=== PATIENT | male | born 1950 | race Caucasian/White ===

== ENCOUNTER → 2020-07-13 11:23 | Outpatient (BNVA) | payer MEDICARE, OTHER, SELFPAY | PROVIDERS: PCP Internal Medicine; Visit Provider Urology | DX: Z76.89 Persons encountering health services in other specified circumstances (principal) | CPT/HCPCS: 99212 ==

== ENCOUNTER → 2022-04-26 13:10 | Outpatient (BNVA) | payer MEDICARE, OTHER, SELFPAY | PROVIDERS: PCP Internal Medicine; Visit Provider Urology | DX: N40.1 Benign prostatic hyperplasia with lower urinary tract symptoms (principal); N13.8 Other obstructive and reflux uropathy; R35.1 Nocturia; N52.9 Male erectile dysfunction, unspecified | CPT/HCPCS: 51798; 99212 ==

== ENCOUNTER 2023-10-12 11:32 | Outpatient (AMB) | payer MEDICARE, OTHER, SELFPAY ==
--- NOTE | 2023-10-12 11:56 | A.OFFVIS_ITS ---
Intake Intake Visit Reasons: 1Y PVR Intake Note: Patient is Present for Follow Up Urology Medication: sildenafil, Terazosin Antibiotic Allergies: None Blood Thinners: None PVR: 0 Allergies furosemide [Lasix] Allergy (Unknown, Verified 10/12/23 11:57) Unknown hydroxychloroquine [Plaquenil] Allergy (Unknown, Verified 10/12/23 11:57) Unknown tramadol [Ultram] Allergy (Unknown, Verified 10/12/23 11:57) Unknown Medication List - Last Reconciled 10/12/23 by Kyaw Sotelo MD atorvastatin 20 mg PO DAILY chlorthalidone 25 mg PO DAILY flu 2019 [id number](PF) 60 mcg (15 mcg x 4)/0.5 mL mL IM metoprolol succinate ER 200 mg PO DAILY sildenafil 100 mg PO ONCE PRN 30 days terazosin 10 mg PO BEDTIME 90 days HPI HPI Comments History of Present Illness Details ?Mr Mckoy is a very pleasant male. They are a patient of Dr Fields. They are seen in the office today for the following urologic cond itions. - lower urinary tract symptoms - erectile dysfunction PVR 0 Stable response to terazosin 10 mg Good response to generic Viagra Continue to follow with intermittent PSA Lower Urinary Tract Symptoms:? Current visit is for?further evaluation of, lower urinary tract symptoms, predominate obstructive symptoms ?- symptoms stable with nocturia x2 ?- good effect with terazosin.? Current treatment includes?medication, alpha vito, terazosin 5mg.? Prostate Symptom Score?Mild (0-8), Bother 3 ?11/05 , Mild (0-8), Bother 2.? Symptoms include?07/03 weak stream, nocturia (>2), and are stable ?11/05 , weak stream, and are stable.? Prior Prostate Score?mild.? PSA?Apr 2015 0.9, 07/06 0.4 ? Prostate volume?< 30 gm.? Testing at next visit will include?uroflow.? Treatment plan?continue with current medications.? Erectile dysfunction:? He presents today for?for continued evaluation and management of erectile dysfunction.? Current treament includes?generic sildenafil 20mg good effect.? Treatment side effects include?none.? Prior therapies include?oral medications.? At this time he experiences erections?are partial and adequate for vaginal penetration.? Nocturnal erections?do not occur.? Currently they are?in a stable relationship.? Associated problems? hypertension ?Yes ? diabetes ?No ? dyslipidemia ?Yes ? Overall he is ?satisfied with the current management.? Therapeutic plan includes?maintaining current therapy.? Review of Systems Const Denies chills and Denies fever(s) Card Reports no additional complaints and Denies syncope Resp Denies cough GI Denies abdominal pain and Denies heartburn Reports as per HPI and Denies change in libido Neuro Denies syncope Psych Denies change in libido Endo Denies change in libido Physical Exam Const General: cooperative, healthy appearing, comfortable and no acute distress Orientation/consciousness: patient oriented x3 HEENT Face and sinus: Yes normal facial exam Mouth: moist mucous membranes Neck Neck: Yes normal visual inspection, Yes full ROM and Yes trachea midline Chest Chest palpation & inspection: normal inspection of the chest Resp Effort & Inspection: normal respiratory effort, able to speak in complete sentences and no respiratory distress GI Inspection: Yes normal to inspection Back/Spine/Pelvis Cervical Spine: normal cervical lordosis Thoracic/Lumbar Spine: thoracic and lumbar spine normal to inspection Skin General skin exam: no rashes or lesions noted Neuro General: patient oriented x3, gait normal, tone normal and moves all extremities Extrem General: Yes normal to inspection and Yes capillary refill normal Office Procedures Post Void Residual Post Residual Void Post Void Residual (PVR): 0 [id number] Void Residual by ultrasound Assessment & Plan Assessment & Plan (1) Erectile dysfunction: Code(s): N52.9 - Male erectile dysfunction, unspecified (2) BPH loc w urin obs/LUTS: Code(s): N40.1 - Benign prostatic hyperplasia with lower urinary tract symptoms Plan Medication refill Month follow-up PSA Orders: Orders Prostate Specific Antigen 364 Days N40.1 - Benign prostatic hyperplasia with lower urinary tract symptoms AMB Post Void Residual by ultrasound 10/12/23 N40.1 - Benign prostatic hyperplasia with lower urinary tract symptoms Patient Instructions: Imaging studies, laboratory and physical exam results were discussed and reviewed in detail. No major barriers to patient understanding were identified. An opportunity to ask questions regarding the treatment plan was provided. All questions were answered. The patient expressed understanding and agreement with the above treatment plan. The patient is aware they should contact our office by phone for worsening of their current condition or the appearance of new urologic symptoms. Compliance is encouraged with any medications and followup testing that is ordered. It is a privilege to participate in the urologic care of your patient. If you have any questions or concerns regarding treatment for the above conditions, or other urologic issues, please do not hesitate to contact me. The office telephone contact is [phone]. This note is constructed using voice recognition software. While every effort has been made to ensure accuracy director advanced errors may have been included. Yours sincerely, Dr Kyaw Sotelo MD, [facility] [place] - Urology Providers of Expert, Compassionate Care for the Genitourinary System Coding Level of Care Code Est Pt Level 4 (85509) Diagnoses Erectile dysfunction N52.9 BPH loc w urin obs/LUTS N40.1 CPT Codes Post Residual Void - PVR CPT Code: 80734-Ynqx Void Residual by ultrasound ([id number])
== END 2023-10-12 12:27 | disposition home or self-care (01) ==
PROVIDERS: Visit Provider Urology
DX: N52.9 Male erectile dysfunction, unspecified (principal); N40.1 Benign prostatic hyperplasia with lower urinary tract symptoms
CPT/HCPCS: 99213

== ENCOUNTER → 2023-10-12 11:32 | Outpatient (BNVA) | payer MEDICARE, OTHER, SELFPAY | PROVIDERS: Visit Provider Urology | DX: N40.1 Benign prostatic hyperplasia with lower urinary tract symptoms (principal); N13.8 Other obstructive and reflux uropathy; N52.9 Male erectile dysfunction, unspecified | CPT/HCPCS: 51798; 99212 ==

== ENCOUNTER → 2024-10-10 11:11 | Outpatient (BNVA) | payer OTHER, SELFPAY | PROVIDERS: PCP Internal Medicine; Visit Provider Urology | DX: N40.1 Benign prostatic hyperplasia with lower urinary tract symptoms (principal); N13.8 Other obstructive and reflux uropathy; N52.9 Male erectile dysfunction, unspecified | CPT/HCPCS: 51798; 81003 ==

== ENCOUNTER 2025-04-11 16:06 | Emergency (ER) | payer MEDICARE, OTHER, SELFPAY ==
--- NOTE | ~2025-04-11 | XR_ITS ---
CLINICAL HISTORY: weakness 1 view chest x-ray Comparison: None provided Findings: Median sternotomy. The lungs are clear. Normal size heart. No acute fracture. IMPRESSION: 1. No acute findings. This document has been electronically signed by: Cassie Lord MD on 04/11/2025 18:00:17
--- NOTE | ~2025-04-11 | CT_ITS ---
CLINICAL HISTORY: diarrhea, diffuse ABD pain, LLQ TTP CT abdomen and pelvis with contrast Comparison: CT - CT ABDOMEN PELVIS W IV CON - 04/11/25 18:59 EDT Findings: The lung bases are clear. Unremarkable gallbladder and solid organs. No urolithiasis. No bowel obstruction, pneumoperitoneum, or pneumatosis. Pelvic contents unremarkable. Appendix is not seen. The bones are intact. Right hip arthroplasty. Grade 1 anterolisthesis of L5 on S1. Bilateral L5-S1 pars interarticularis defects. Multilevel disc space narrowing and endplate osteophyte formation, as well as facet hypertrophy. IMPRESSION: No acute findings. This document has been electronically signed by: Cassie Lord MD on 04/11/2025 20:18:22
--- NOTE | ~2025-04-11 | CT_ITS ---
CLINICAL HISTORY: weakness, unsteady gait CT head without contrast Comparison: None provided Findings: No intra-axial mass, midline shift, hydrocephalus, or acute hemorrhage. Age appropriate cerebral volume loss. Patchy low-density within the periventricular and subcortical white matter. The visualized paranasal sinuses and mastoid air cells are normal. The orbits are unremarkable. There is no acute fracture. IMPRESSION: 1. No acute intracranial findings. This document has been electronically signed by: Cassie Lord MD on 04/11/2025 20:19:19
[2025-04-11 16:16] VITALS: BP 112/68; BP 98/54; PULSE 79; RESP 20; TEMP 36.6; O2SAT 95; O2SAT 97; BMI 30.8
--- NOTE | 2025-04-11 16:38 | ECG_ITS ---
Test Reason : WEAKNESS Blood Pressure : */* mmHG Vent. Rate : 71 BPM Atrial Rate : 71 BPM P-R Int : 192 ms QRS Dur : 94 ms QT Int : 422 ms P-R-T Axes : 36 -7 27 degrees QTcB Int : 458 ms Normal sinus rhythm Normal ECG No previous ECGs available Referred By: María Garg Electronically Signed By: Milton Mosley
--- NOTE | 2025-04-11 16:57 | PC.NURSE ---
Pt BIBA. Reports increased weakness for a couple of months now that has been worsening. Also mentions intermittent abdominal pain but not currently having any, and has had multiple episodes of diarrhea today. No nausea or vomiting. Hes alert and oriented. Skin is pale. Hes breathing normally, unlabored and denies shortness of breath. +CSM. Placed on tele. Plan of care on going.
--- NOTE | 2025-04-11 17:15 | ED_ITS ---
HPI - Weakness General Chief complaint: Weakness Stated complaint: general weakness Time Seen by Provider: 04/11/25 16:20 Source: patient and EMS Mode of arrival: EMS Limitations: no limitations History of Present Illness ED Provider: calin baird np HPI Narrative: Patient is a 74-year-old male with past medical history of atherosclerosis, atrial fibrillation history of ablation, hypertension, hyperlipidemia, sick sinus syndrome with no reported pacemaker, history of aortic valve replacement,, BPH, untreated ROYCE, history of PMR in [id number] which he states he was on varying levels of prednisone throughout those years, associated joint pain, no recent issues who presents emergency department for evaluation. He states that since early February he had abrupt onset 1 day of severe fatigue. Typically he leaves the house daily, has been to have energy can carry groceries up to the 2nd floor without difficulty. One day he suddenly felt as though he had no energy to leave the house and was just feeling generally weak. He saw his primary care provider early on had blood work done including thyroid function and testosterone levels which he states was normal. Soon thereafter he began developing generalized abdominal pain without associated nausea vomiting fevers chills constipation diarrhea or genitourinary symptoms. Had an abdominal ultrasound which was unremarkable. He states that he presented to [facility] 03/12/2025 and was admitted for 2 days success on 04/2025. States he was given no answer in regards to his fatigue but felt that his abdominal pain may have been due to an ulcer and he was started on pantoprazole, had no endoscopy performed, has continued to have abdominal pain but has been taking pantoprazole. Outpatient GI he is typically eating perhaps 1 meal a day, minimal oral intake, but taking ensure protein drinks. The fatigue/weakness has only med progressively worsening. Today he had a few episodes of diarrhea described as loose stools that are only progressively worsening. Additionally he states he has having intermittent mottling of the bilateral lower extremities without associated pain, coolness to touch, or swelling. He was discharged from [facility] with VNA/PT services which he is receiving once weekly through [employer]. Discharge instructions [facility] include pantoprazole for the presumed ulcer, no scheduled follow-up for Gastroenterology, advised outpatient follow-up with PCP and instructed to have rheumatology follow-up for treatment of PMR to improve energy/fatigue Related Data Home Medications ?Medication ?Instructions ?Recorded ?Confirmed atorvastatin 20 mg tablet 20 mg PO DAILY 07/13/2003/18 chlorthalidone 25 mg tablet 25 mg PO DAILY 07/13/20 metoprolol succinate 200 mg 200 mg PO DAILY 07/13/20 0 04/12/25 tablet,extended release 24 hr bisacodyl 10 mg rectal suppository 10 mg SC DAILY PRN constipation 04/12/25 04/12/25 cetirizine 10 mg tablet 10 mg PO DAILY 04/12/2503/18 docusate sodium 100 mg capsule 100 mg PO BID PRN const ipation 04/12/25 04/12/25 melatonin 3 mg tablet 3 mg PO BEDTIME PRN Sleep 04/12/25 pantoprazole 40 mg tablet,delayed 40 mg PO BID 5 04/12/25 release polyethylene glycol 3350 17 17 g PO DAILY PRN constipa tion 04/12/25 04/12/25 gram/dose oral powder (ClearLax) prednisone 5 mg tablet 10 mg PO DAILY 04/12/2503/18 Previous Rx's ?Medication ?Instructions ?Recorded terazosin 10 mg capsule 10 mg PO BEDTIME #90 caps oxycodone 5 mg tablet 5 mg PO Q8H PRN severe pain (scale 04/14/25 score 7-10) #10 tabs Allergies Allergy/AdvReac Type Severity Reaction Status Date / Time furosemide (Lasix) Allergy Unknown Unknown Verified 10/10/24 11:15 hydroxychloroquine Allergy Unknown Unknown Verified 10/10/24 11:15 (Plaquenil) tramadol (Ultram) Allergy Unknown Unknown Verified 10/10/24 11:15 acetaminophen (From Vicodin) Allergy Unknown Verified 04/11/25 16:22 amoxicillin Allergy Unknown Verified 04/11/25 16:22 bisacodyl (From Dulcolax Allergy Unknown Verified 04/11/25 16:22 (bisacodyl)) celecoxib (From Celebrex) Allergy Unknown Verified 04/11/25 16:22 hydrocodone (From Vicodin) Allergy Unknown Verified 04/11/25 16:22 valdecoxib (From Bextra) Allergy Unknown Verified 04/11/25 16:22 [facility] Social History Social History Alcohol intake: former Smoked in Last 30 Days: No Use of substances other than those prescribed or required for medical reasons: No Advance Directives: No Advance Directives Information Provided: No Physical Exam 2 Exam: Exam: Appearance: Alert.?Oriented to person, place and time. No acute distress.?Normal affect. Eyes: Pupils equal, round and reactive to light.? ENT: Pharynx normal.?? Neck: Normal inspection.? Neck supple.?? CVS: Heart sounds normal. Normal heart rate and rhythm.? Pulses normal.?? Respiratory: No respiratory distress.? Lung sounds clear to auscultation bilaterally?? Abdomen: Soft with diffuse abdominal tenderness, worse in the left lower quadrant. No CVA tenderness. Normoactive bowel sounds. No pulsatile mass.?? Skin: Skin warm and dry.? Normal skin color.? Extremities: No lower extremity edema.? No calf ttp. 2+ DP/PT pulse bilaterally? Neuro: Moves all extremities spontaneously. Sensation intact bilaterally. CN II- XII intact. No focal neuro deficits. Ambulates with slow unsteady gait. Vital Signs: Vital Signs: Last Vital Signs Temp 98.2 F 04/14/25 12:17 Pulse 94 04/14/25 12:17 Resp 18 04/14/25 12:17 BP 104/68 04/14/25 12:17 Pulse Ox 97 04/14/25 12:17 O2 Del Method Room Air 04/14/25 12:17 BMI result Body Mass Index 30.8 Course Reevaluation(s) Reevaluation #1: CBC reveals leukocytosis of 16,700 with left shift, mild thrombocytosis with platelet count of 411,000, normocytic anemia not meeting transfusion criteria. Mild hyponatremia is 134, no KAYLYN. Mild elevation of LFTs, normal lipase. High sensitive troponin within normal range. Notably elevated inflammatory markers with CRP 26.3 and ESR 97, as per narrative, may be secondary to PMR. Leukocytosis may be inflammatory in nature, however given associated diarrhea and abdominal pain, concern for potential infection at this time. He is afebrile and no tachycardia. Will provide empiric coverage with ceftriaxone, sent lactic acid and blood cultures, pending CT imaging at this time. Time: 18:34 Reevaluation #2: Patient signed out to Arelis MARSH pending CT of the abdomen and pelvis in addition to urinalysis, re-evaluation/disposition Time: 19:13 Reevaluation #3: 7:23 PM 04/11/2025 (Arelis MARSH): Patient is signed out to this provider at shift change, in summary the patient is a 74-year-old male presenting to the ED for complaints of ongoing weakness/fatigue for the past 2 months which has been previously evaluated at [facility] and thought to be possibly secondary to history of PMR, patient was referred to Rheumatology but has not yet followed up. The patient reports however today he began experiencing generalized abdominal pain localizing to the left lower quadrant with associated diarrhea. Exam revealed abdominal tenderness and laboratory workup showed elevated CRP, ESR, and leukocytosis of 16,000. Patient is signed out to this provider pending CT abdomen and UA. Of note this provider just received a phone call from the lab indicating patient has not elevated lactic acid of 2.1. Given the patient's lactic acidosis, leukocytosis, low blood pressure on presentation and elevated respiratory rate on most recent vital signs, we will add additional IV fluid to complete full 30 cc/kg bolus. Blood cultures were already obtained and patient has been treated with Rocephin, we will add on IV Flagyl and await CT results. 10:31 PM 04/11/2025 (Arelis MARSH): Patient's CT results are negative for acute pathology, patient's urinalysis is still pending. We will follow up UA for infectious process. 12:21 AM 04/12/2025 (Arelis MARSH): The patient's urinalysis also shows no evidence of infection. The patient's lactic acid is clear to 2.1, patient remains afebrile. The source of the patient's leukocytosis, elevated lactic acid and inflammatory markers is not entirely clear. The patient's LFTs are mildly abnormal, we will add on hepatitis panel and reassess. 3:30 AM 04/12/2025 (Arelis MARSH): The patient's hepatitis panel will not return until Sunday, the patient remains afebrile, normotensive, with no obvious source of infection. The patient states he is too weak to return home safely. At this time, despite elevated inflammatory markers and WBCs, the patient has no identifiable source of infection and no admitting diagnosis and the patient will be admitted to case management observation status. Time: 09:36 Date: 04/12/25 Provider: Kaylynn Arriaza NP Patient in physician observation for case management needs. No acute events reported overnight.? No current issues or complaints. VS stable. Patient is pending PT/CM eval. Will continue to monitor. On review of the med rec the patient had been on 15 mg of prednisone daily until the week of February in which he was decreased to 10 mg daily. His symptoms on review of the chart and after discussion with his initial provider started the week of February. Wondering if he is having a PMR flare due to the decrease of daily prednisone. Therefore I will increase his dose to 15 mg Time: 14:02 Date: 04/14/25 Provider: SALMA Hooks Patient in physician observation for case management needs. No acute events reported overnight.? No current issues or complaints. VS stable. He remains afebrile and hemodynamically stable. His labs were reviewed. Given his significant leukocytosis, transaminitis will repeat labs as they were done 3 days ago. Patient is pending placement at facility/ following for placement to short term rehab. Will continue to monitor. Time: 15:39 Date: 04/14/25 Provider: SALMA Hooks Physician observation ended at 15:40. Patient has been cleared for discharge to short term rehab. labs overall improved, aside from some mild increase in transaminases. Bilirubin is now normal. CRP is now 15 and white count is down trending. Comfortable discharge to short-term rehab with ongoing treatment for PMR flare. Patient does not require inpatient medical admission at this time. Stable for discharge to [facility] Medications Administered Generic Name Dose Route Start Last Admin Trade Name Freq PRN Reason Stop Dose Admin Atorvastatin Calcium 20 mg 04/12/25 09:30 04/14/25 10:26 Atorvastatin Calcium 20 Mg Tablet PO 20 mg DAILY JOANIE Administration Docusate Sodium 100 mg 04/12/25 09:19 04/13/25 20:25 Docusate Sodium 100 Mg Capsule PO 100 mg BID PRN Administration Constipation Doxazosin Mesylate 8 mg 04/12/25 21:00 04/13/25 20:25 Doxazosin Mesylate 2 Mg Tablet PO 8 mg BEDTIME JOANIE Administration Hydrochlorothiazide 25 mg 04/12/25 09:45 04/14/25 10:26 Hydrochlorothiazide 25 Mg Tablet PO 25 mg DAILY JOANIE Administration Metoprolol Succinate 200 mg 04/12/25 09:30 04/14/25 10:25 Metoprolol Succinate Er 100 Mg Tab.Er.24h PO 200 mg DAILY JOANIE Administration Protocol Omeprazole 20 mg 04/12/25 09:45 04/14/25 05:37 Omeprazole 20 Mg Capsule.Dr PO 20 mg BID@0630,1630 JOANIE Administration Oxycodone HCl 5 mg 04/12/25 20:34 04/14/25 12:22 Oxycodone Hcl Immed Release 5 Mg Tablet PO 5 mg Q6H PRN Administration Pain, Moderate(Pain Scale 4-6) Prednisone 15 mg 04/12/25 09:45 04/14/25 12:05 Prednisone 5 Mg Tablet PO 15 mg DAILY JOANIE Administration Discontinued Medications Generic Name Dose Route Start Last Admin Trade Name Freq PRN Reason Stop Dose Admin Ceftriaxone Sodium 1 gm 04/11/25 18:33 04/11/25 18:56 Ceftriaxone Sodium 1 Gm Vial IVPUSH 04/11/25 18:34 1 gm ONCE ONE Administration Doxazosin Mesylate 8 mg 04/11/25 17:50 04/11/25 18:14 Doxazosin Mesylate 2 Mg Tablet PO 04/11/25 17:51 8 mg ONCE ONE Administration Protocol Sodium Chloride 1,000 mls @ 999 mls/hr 04/11/25 17:45 04/11/25 20:13 Ns IV 04/11/25 18:45 Infused .Q1H1M JOANIE Infusion Sodium Chloride 1,600 mls @ 999 mls/hr 04/11/25 19:30 04/11/25 21:37 Ns IV 04/11/25 21:06 Infused .Q1H37M JOANIE Infusion Metronidazole 500 mg in 100 mls @ 100 mls/hr 04/11/25 19:27 04/11/25 21:11 Flagyl IV 04/11/25 20:26 Infused ONCE ONE Infusion Iohexol 85 ml 04/11/25 19:11 04/11/25 19:11 Iohexol 350 Mg/Ml 100 Ml Infus..Btl IV 04/11/25 19:12 85 ml ONCE ONE Administration Oxycodone HCl 5 mg 04/11/25 17:50 04/11/25 18:14 Oxycodone Hcl Immed Release 5 Mg Tablet PO 04/11/25 17:51 5 mg ONCE ONE Administration Oxycodone HCl 5 mg 04/12/25 03:28 04/12/25 03:36 Oxycodone Hcl Immed Release 5 Mg Tablet PO 04/12/25 03:29 5 mg ONCE ONE Administration Oxycodone HCl 5 mg 04/12/25 09:30 04/12/25 11:04 Oxycodone Hcl Immed Release 5 Mg Tablet PO 04/12/25 09:31 5 mg ONCE ONE Administration Medical Decision Making Medical Decision Making [facility] Narrative: Patient is a 74-year-old male with past medical history of atherosclerosis, atrial fibrillation history of ablation, hypertension, hyperlipidemia, sick sinus syndrome with no reported pacemaker, history of aortic valve replacement,, BPH, untreated ROYCE, history of PMR in [id number] which he states he was on varying levels of prednisone throughout those years- no recent issues who presents emergency department for evaluation of progressively worsening fatigue/ generalized weakness, unsteady gait, and onset today of worsening abdominal pain with diarrhea. He has consciousness and oriented x4. No focal neurological deficits. He appears somewhat pale has good capillary refill. No reports of active bleeding. He is afebrile without tachycardia, no tachypnea hypoxia, no respiratory distress. LS CTA. Mildly hypotensive on arrival 98/54 but he also has had minimal intake, suspect dehydration to some degree. He has diffuse abdominal pain and tenderness though more notable tenderness in the left lower quadrant with the associated diarrhea. Will obtain CBC to evaluate for leukocytosis/ anemia, CMP and lipase to evaluate for abnormal electrolytes /abnormal renal function/ abnormal hepatic/biliary function, EKG and troponin to evaluate for ischemia/ACS. Chest x-ray to evaluate for consolidation/ infiltrate/ mass/ pulmonary congestion and Urinalysis, CT head/abdomen and pelvis. Differential Diagnosis Differential Diagnoses: The differential diagnosis associated with the presentation includes (see narrative above) Admission/Observation Consideration of admission/observation: Escalation of care including admission/observation considered Lab Data [facility] Lab Attestation statement: I reviewed the patient's lab results. 04/14/25 15:05 04/14/25 15:05 Labs: Lab Results 04/11/25 04/11/25 04/11/25 Range/Units 17:19 17:57 17:58 WBC 16.7 H (4.8-10.8) X10*3/uL RBC 3.54 L (4.60-5.80) X10*6/uL Hgb 11.0 L (14.0-18.0) g/dl Hct 32.2 L (42.0-52.0) % MCV 91.0 (80.0-98.0) fL MCH 31.1 (27.0-33.0) pg MCHC 34.2 (31.0-36.0) g/dl RDW 14.0 (11.0-16.0) % Plt Count 411 H (160-400) X10*3/uL MPV 8.8 L (9.4-12.4) fL Immature Gran % (Auto) 1.0 H (0.0-0.4) % Neut % (Auto) 86.9 H (45-73) % Lymph % (Auto) 7.3 L (20-40) % Isabela % (Auto) 3.8 (2-11) % Eos % (Auto) 0.8 (0-4) % Baso % (Auto) 0.2 (0-2) % Lymph # (Auto) 1.2 (1.2-4.9) X10*3/uL Isabela # (Auto) 0.6 (0.1-1.2) X10*3/uL Eos # (Auto) 0.1 (0.0-0.4) X10*3/uL Baso # (Auto) 0.0 (0.0-0.2) X10*3/uL Abs Immat Gran (auto) 0.16 H (0.00-0.03) X10*3/uL Absolute Neuts (auto) 14.6 H (2.0-8.3) x10*3/uL Absolute Nucleated RBC 0.000 (0.0-0.012) X10*3/uL Nucleated RBC % (auto) 0.0 (0.0-0.2) /100WBC ESR 97 H (0-15) MM/HR Sodium 134 L (135-145) mmol/L Potassium 3.3 (3.3-5.1) mmol/L Chloride 90 L (96-108) mmol/L Carbon Dioxide 28 (22-29) mmol/L Anion Gap 19 (12-20) BUN 14 (9-16) mg/dL Creatinine 0.59 (0.5-1.4) mg/dL Estim Creat Clear Calc 106.1 Estimated GFR > 60 Random Glucose 130 H (60-115) mg/dL Lactic Acid (0.5-2.0) mmol/L Lactic Acid F/U @ 2Hr (0.5-2.0) mmol/L Calcium 8.6 (8.4-10.2) mg/dL Magnesium 2.1 (1.6-2.6) mg/dL Total Bilirubin 1.1 H (0.0-1.0) mg/dL Direct Bilirubin (0.0-0.5) mg/dL AST 68 H (5-37) U/L ALT 69 H (0-40) U/L Alkaline Phosphatase 76 (39-117) U/L Troponin I High Sens 4.6 (<3.5-35.0) ng/L C-Reactive Protein 26.03 H (< or = 0.50) mg/dL B-Natriuretic Peptide 90 (<100) pg/mL Total Protein 6.3 L (6.5-8.0) g/dL Albumin 3.0 L (3.5-5.0) g/dL Lipase 21 (8-78) U/L TSH 1.47 (0.32-4.0) uIU/mL Urine Color Urine Appearance Urine pH (5.0-9.0) Ur Specific Friona (1.005-1.025) Urine Protein (Neg-Trace) mg/dL Urine Glucose (UA) (Negative) mg/dL Urine Ketones (Negative) mg/dL Urine Blood (Negative) Urine Nitrite (Negative) Ur Leukocyte Esterase (Negative) A.phagocytophil DNA PCR NOT DETECTED (NOT DETECTED) Babesia microti DNA PCR NOT DETECTED (NOT DETECTED) Borrelia sp DNA (PCR) NOT DETECTED (NOT DETECTED) Lyme Screen IgG & IgM <0.90 index Lyme Progressive Test TNP Borrelia miyamotoi (PCR) NOT DETECTED (NOT DETECTED) E.chaffeensis DNA (PCR) NOT DETECTED (NOT DETECTED) Hepatitis A IgM Ab (Nonreactive) Hep Bs Antigen Hep Bs Antigen (2) (Negative) Hep Bs Antibody (Nonreactive) Hep B Core Total Ab (Nonreactive) Hepatitis C Ab (EIA) (Nonreactive) Influenza Type A (PCR) NEGATIVE (Negative) Influenza Type B (PCR) NEGATIVE (Negative) RSV RNA Qual (PCR) NEGATIVE (Negative) SARS-CoV-2 RNA (RT-PCR) NEGATIVE (Negative) Tick-borne Disease PCR SEE NOTE 04/11/25 04/11/25 04/11/25 Range/Units 18:55 21:54 23:02 WBC (4.8-10.8) X10*3/uL RBC (4.60-5.80) X10*6/uL Hgb (14.0-18.0) g/dl Hct (42.0-52.0) % MCV (80.0-98.0) fL MCH (27.0-33.0) pg MCHC (31.0-36.0) g/dl RDW (11.0-16.0) % Plt Count (160-400) X10*3/uL MPV (9.4-12.4) fL Immature Gran % (Auto) (0.0-0.4) % Neut % (Auto) (45-73) % Lymph % (Auto) (20-40) % Isabela % (Auto) (2-11) % Eos % (Auto) (0-4) % Baso % (Auto) (0-2) % Lymph # (Auto) (1.2-4.9) X10*3/uL Isabela # (Auto) (0.1-1.2) X10*3/uL Eos # (Auto) (0.0-0.4) X10*3/uL Baso # (Auto) (0.0-0.2) X10*3/uL Abs Immat Gran (auto) (0.00-0.03) X10*3/uL Absolute Neuts (auto) (2.0-8.3) x10*3/uL Absolute Nucleated RBC (0.0-0.012) X10*3/uL Nucleated RBC % (auto) (0.0-0.2) /100WBC ESR (0-15) MM/HR Sodium (135-145) mmol/L Potassium (3.3-5.1) mmol/L Chloride (96-108) mmol/L Carbon Dioxide (22-29) mmol/L Anion Gap (12-20) BUN (9-16) mg/dL Creatinine (0.5-1.4) mg/dL Estim Creat Clear Calc Estimated GFR Random Glucose (60-115) mg/dL Lactic Acid 2.1 H* (0.5-2.0) mmol/L Lactic Acid F/U @ 2Hr 1.1 (0.5-2.0) mmol/L Calcium (8.4-10.2) mg/dL Magnesium (1.6-2.6) mg/dL Total Bilirubin (0.0-1.0) mg/dL Direct Bilirubin (0.0-0.5) mg/dL AST (5-37) U/L ALT (0-40) U/L Alkaline Phosphatase (39-117) U/L Troponin I High Sens (<3.5-35.0) ng/L C-Reactive Protein (< or = 0.50) mg/dL B-Natriuretic Peptide (<100) pg/mL Total Protein (6.5-8.0) g/dL Albumin (3.5-5.0) g/dL Lipase (8-78) U/L TSH (0.32-4.0) uIU/mL Urine Color Yellow Urine Appearance Clear Urine pH 7.5 (5.0-9.0) Ur Specific Friona >= 1.030 H (1.005-1.025) Urine Protein Negative (Neg-Trace) mg/dL Urine Glucose (UA) Negative (Negative) mg/dL Urine Ketones 40 (Negative) mg/dL Urine Blood Negative (Negative) Urine Nitrite Negative (Negative) Ur Leukocyte Esterase Negative (Negative) A.phagocytophil DNA PCR (NOT DETECTED) Babesia microti DNA PCR (NOT DETECTED) Borrelia sp DNA (PCR) (NOT DETECTED) Lyme Screen IgG & IgM index Lyme Progressive Test Borrelia miyamotoi (PCR) (NOT DETECTED) E.chaffeensis DNA (PCR) (NOT DETECTED) Hepatitis A IgM Ab (Nonreactive) Hep Bs Antigen Hep Bs Antigen (2) (Negative) Hep Bs Antibody (Nonreactive) Hep B Core Total Ab (Nonreactive) Hepatitis C Ab (EIA) (Nonreactive) Influenza Type A (PCR) (Negative) Influenza Type B (PCR) (Negative) RSV RNA Qual (PCR) (Negative) SARS-CoV-2 RNA (RT-PCR) (Negative) Tick-borne Disease PCR 04/12/25 04/14/25 Range/Units 02:24 15:05 WBC 15.7 H (4.8-10.8) X10*3/uL RBC 3.22 L (4.60-5.80) X10*6/uL Hgb 10.0 L (14.0-18.0) g/dl Hct 29.9 L (42.0-52.0) % MCV 92.9 (80.0-98.0) fL MCH 31.1 (27.0-33.0) pg MCHC 33.4 (31.0-36.0) g/dl RDW 14.1 (11.0-16.0) % Plt Count 355 (160-400) X10*3/uL MPV 8.7 L (9.4-12.4) fL Immature Gran % (Auto) 1.0 H (0.0-0.4) % Neut % (Auto) 89.6 H (45-73) % Lymph % (Auto) 3.6 L (20-40) % Isabela % (Auto) 4.4 (2-11) % Eos % (Auto) 1.1 (0-4) % Baso % (Auto) 0.3 (0-2) % Lymph # (Auto) 0.6 L (1.2-4.9) X10*3/uL Isabela # (Auto) 0.7 (0.1-1.2) X10*3/uL Eos # (Auto) 0.2 (0.0-0.4) X10*3/uL Baso # (Auto) 0.0 (0.0-0.2) X10*3/uL Abs Immat Gran (auto) 0.15 H (0.00-0.03) X10*3/uL Absolute Neuts (auto) 14.0 H (2.0-8.3) x10*3/uL Absolute Nucleated RBC 0.000 (0.0-0.012) X10*3/uL Nucleated RBC % (auto) 0.0 (0.0-0.2) /100WBC ESR (0-15) MM/HR Sodium 135 (135-145) mmol/L Potassium 3.4 (3.3-5.1) mmol/L Chloride 95 L (96-108) mmol/L Carbon Dioxide 33 H (22-29) mmol/L Anion Gap 10 L (12-20) BUN 14 (9-16) mg/dL Creatinine 0.49 L (0.5-1.4) mg/dL Estim Creat Clear Calc 127.8 Estimated GFR > 60 Random Glucose 172 H (60-115) mg/dL Lactic Acid (0.5-2.0) mmol/L Lactic Acid F/U @ 2Hr (0.5-2.0) mmol/L Calcium 8.0 L D (8.4-10.2) mg/dL Magnesium 2.0 (1.6-2.6) mg/dL Total Bilirubin 0.6 (0.0-1.0) mg/dL Direct Bilirubin 0.2 (0.0-0.5) mg/dL AST 85 H (5-37) U/L ALT 119 H (0-40) U/L Alkaline Phosphatase 67 (39-117) U/L Troponin I High Sens (<3.5-35.0) ng/L C-Reactive Protein 15.27 H (< or = 0.50) mg/dL B-Natriuretic Peptide (<100) pg/mL Total Protein 5.5 L (6.5-8.0) g/dL Albumin 2.6 L (3.5-5.0) g/dL Lipase (8-78) U/L TSH (0.32-4.0) uIU/mL Urine Color Urine Appearance Urine pH (5.0-9.0) Ur Specific Friona (1.005-1.025) Urine Protein (Neg-Trace) mg/dL Urine Glucose (UA) (Negative) mg/dL Urine Ketones (Negative) mg/dL Urine Blood (Negative) Urine Nitrite (Negative) Ur Leukocyte Esterase (Negative) A.phagocytophil DNA PCR (NOT DETECTED) Babesia microti DNA PCR (NOT DETECTED) Borrelia sp DNA (PCR) (NOT DETECTED) Lyme Screen IgG & IgM index Lyme Progressive Test Borrelia miyamotoi (PCR) (NOT DETECTED) E.chaffeensis DNA (PCR) (NOT DETECTED) Hepatitis A IgM Ab Nonreactive (Nonreactive) Hep Bs Antigen Not Reportable Hep Bs Antigen (2) NEGATIVE (Negative) Hep Bs Antibody NONREACTIVE (Nonreactive) Hep B Core Total Ab Nonreactive (Nonreactive) Hepatitis C Ab (EIA) Nonreactive (Nonreactive) Influenza Type A (PCR) (Negative) Influenza Type B (PCR) (Negative) RSV RNA Qual (PCR) (Negative) SARS-CoV-2 RNA (RT-PCR) (Negative) Tick-borne Disease PCR Independent Interpretation I performed an independent interpretation of an: EKG (Normal sinus rhythm with a ventricular rate of 71, BRAIN, QTC 458, no ST-elevation.) and Plain X-Ray (No consolidation infiltrate to favor pneumonia, no pleural effusions.) Radiology Impression Discussion of test interpretation with radiology: I have reviewed the radiologist's reading. Radiologist Impression: 1 view chest x-ray Comparison: None provided Findings: Median sternotomy. The lungs are clear. Normal size heart. No acute fracture. IMPRESSION: 1. No acute findings. Independent Historian Clinical information obtained from an independent historian. History obtained from or confirmed by: EMS External Record Review External record reviewed: Outpatient record Chronic Conditions Patient?s care impacted by: Other (See narrative above) Discharge Plan Discharge Clinical Impression: Weakness generalized, Polymyalgia rheumatica Patient Disposition: Xfer Inpatient Rehab Fac Transfer Details: TO: [facility], [address], [place], [phone] Instructions: Weakness (ED), Polymyalgia Rheumatica (ED) Additional Instructions: Recommend increased dose of prednisone at 15 mg per day for treatment of PMR flare. This will need to be slowly tapered over time. Recommend following up with a surveyor geophysical prospecting. Take the prescribed oxycodone as needed for severe pain only With mild increase in your liver function test. Recommend trending these on outpatient lab work to make sure they get better. Follow-up with your primary care doctor If you develop new or worsening symptoms call 911 or come back to the ER for further evaluation. Prescriptions: New oxycodone 5 mg tablet 5 mg PO Q8H PRN (Reason: severe pain (scale score 7-10)) Qty: 10 0RF Rx Instructions: Partial Fill upon patient request. No Action terazosin 10 mg capsule 10 mg PO BEDTIME Qty: 90 3RF pantoprazole 40 mg tablet,delayed release (DR/EC) 40 mg PO BID prednisone 5 mg tablet 10 mg PO DAILY melatonin 3 mg Tablet 3 mg PO BEDTIME PRN (Reason: Sleep) bisacodyl 10 mg suppository 10 mg SC DAILY PRN (Reason: constipation) docusate sodium 100 mg capsule 100 mg PO BID PRN (Reason: constipation) polyethylene glycol 3350 [ClearLax] 17 gram/dose powder 17 g PO DAILY PRN (Reason: constipation) cetirizine 10 mg Tablet 10 mg PO DAILY atorvastatin 20 mg tablet 20 mg PO DAILY chlorthalidone 25 mg tablet 25 mg PO DAILY metoprolol succinate 200 mg tablet extended release 24 hr 200 mg PO DAILY Referrals: [facility] [Outside] Ara Archuleta MD [Primary Care Provider, Internal Medicine] Print Language: Stateless
[2025-04-11 17:26] LABS: MANUAL DIFF FLAG NO
[2025-04-11 17:27] LABS: Hematocrit 32.2 % (42.0-52.0); Hemoglobin 11.0 g/dl (14.0-18.0); Imm Gran Abs Auto 0.16 X10*3/uL (0.00-0.03); Imm Gran Pct Auto 1.0 % (0.0-0.4); Lymphocytes Absolute Auto 1.2 X10*3/uL (1.2-4.9); Mean Corpuscular HGB Conc 34.2 g/dl (31.0-36.0); Mean Corpuscular Hemoglobin 31.1 pg (27.0-33.0); Mean Corpuscular Volume 91.0 fL (80.0-98.0); NRBC Abs Auto 0.000 X10*3/uL (0.0-0.012); NRBC Pct Auto 0.0 /100WBC (0.0-0.2); Platelet Count 411 X10*3/uL (160-400); Red Blood Count 3.54 X10*6/uL (4.60-5.80); White Blood Count 16.7 X10*3/uL (4.8-10.8)
[2025-04-11 17:49] LABS: B Type Natriuretic Peptide 90 pg/mL (<100)
[2025-04-11 18:07] LABS: Resp Syncy Virus RNA Qual PCR NEGATIVE (Negative); SARS COV2 PCR INHOUSE NEGATIVE (Negative)
[2025-04-11 18:09] VITALS: BP 125/65; PULSE 70; RESP 22; TEMP 36.5; O2SAT 95
[2025-04-11 18:14] VITALS: BP 125/65
[2025-04-11] MEDS: oxyCODONE HCl Immed Release 5 MG TABLET PO (18:14)
[2025-04-11 18:22] LABS: Alanine Aminotransferase 69 U/L (0-40); Albumin Level 3.0 g/dL (3.5-5.0); Alkaline Phosphatase 76 U/L (39-117); Anion Gap 19 (12-20); Aspartate Amino Transferase 68 U/L (5-37); Blood Urea Nitrogen 14 mg/dL (9-16); Calcium 8.6 mg/dL (8.4-10.2); Carbon Dioxide 28 mmol/L (22-29); Chloride 90 mmol/L (96-108); Creatinine Clr Calc Pharmacy 106.1; Estimated Glomerular Filt Rate > 60; Lipase 21 U/L (8-78); Magnesium 2.1 mg/dL (1.6-2.6); Potassium 3.3 mmol/L (3.3-5.1); Sodium 134 mmol/L (135-145); Total Protein 6.3 g/dL (6.5-8.0)
[2025-04-11 18:29] LABS: Troponin-I High Sensitivity 4.6 ng/L (<3.5-35.0)
--- NOTE | 2025-04-11 19:06 | PC.NURSE ---
Patient taken to imaging department for CT of head/brain and abdomen/pelvis.
[2025-04-11] MEDS: iohexoL 350 MG/ML 100 ML INFUS..BTL 85 ML IV (19:11)
--- NOTE | 2025-04-11 19:45 | PC.NURSE ---
Patient brought back to ED 8 from imaging. 20 G IV line established in L hand for IVF and IV abt administration.
[2025-04-11] MEDS: metroNIDAZOLE/NS 500 MG/100 ML PIGGYBACK 100 MG IV (20:11)
[2025-04-11 20:58] LABS: Reflex Lactate? Lactic Acid Added
[2025-04-11 22:17] LABS: ~Lactic Acid-LAB USE ONLY 1.1 mmol/L (0.5-2.0)
--- NOTE | 2025-04-11 22:19 | PC.NURSE ---
Patient reporting history of urinary frequency with occasional episodes of urinary incontinence. Male purewick applied by [place] to promote comfort/skin integrity.
[2025-04-11 23:11] LABS: Appearance Urine Clear; Glucose Urine UA Negative (Negative); PH 7.5 (5.0-9.0); Specific Gravity - Urine >= 1.030 (1.005-1.025)
[2025-04-12] VITALS (7 sets, daily range): BP systolic 109–162; BP diastolic 53–80; PULSE 71–96; RESP 14–22; TEMP 35.6–36.9; O2SAT 95–97
[2025-04-12] MEDS: oxyCODONE HCl Immed Release 5 MG TABLET PO ×3 (03:36→21:19)
--- NOTE | 2025-04-12 09:40 | PHA.MEDREC ---
Pharmacy Consult ? Medication Reconciliation Pharmacy has reviewed the medication reconciliation done by nursing.
--- NOTE | 2025-04-12 10:53 | PC.NURSE ---
med rec - pt rang to tell RN about another med that he forgot to mention on med rec. He states he takes 2, 5mg zyrtec daily since he had an allergic reaction several years ago. med rec amended
[2025-04-12] MEDS: Metoprolol Succinate ER 100 MG TAB.ER.24H 200 MG PO (11:04)
--- NOTE | 2025-04-12 19:58 | PC.NURSE ---
assumed care for pt at 1900. pt awake and alert in bed watching tv. pt in no notable distress, needs met at this time. call deal within reach. plan of care ongoing
[2025-04-13 04:06] LABS: HBS Num1 2.54 mIU/mL (0-7.99); HBc Num1 0.06 S/CO (0.00-0.79); HBsAGNum1 3.11 S/CO (0.00-0.99); Hepatitis A Antibody IgM 0.13 Index (0-0.79); ~HepC Num1 0.24 S/CO (0.00-0.79); ~Hepatitis A Antibody IgM Nonreactive (Nonreactive); ~Hepatitis B Surface Antibody NONREACTIVE (Nonreactive); ~Hepatitis C Antibody Nonreactive (Nonreactive)
[2025-04-13 05:13] LABS: HBsAGNum2 Nonreactive; HBsAGNum3 Nonreactive; Hepatitis B Surface Antigen NEGATIVE (Negative)
[2025-04-13 06:21] VITALS: BP 118/56; PULSE 65; RESP 18; TEMP 36.1; O2SAT 98
[2025-04-13] MEDS: oxyCODONE HCl Immed Release 5 MG TABLET PO ×3 (06:44→20:25)
[2025-04-13 09:58] VITALS: BP 111/65; PULSE 86
[2025-04-13] MEDS: Metoprolol Succinate ER 100 MG TAB.ER.24H 200 MG PO (09:58)
[2025-04-13 10:38] VITALS: BP 111/65; PULSE 86
--- NOTE | 2025-04-13 12:04 | MHC.CM.ED ---
Addendum entered by Noelle Montes 04/13/25 13:54: Received notification primary insurance is Medicare: [id number]. Sheela is secondary. No qualify stay in the past 30 days. Referral will be sent to [facility] acute rehab facilties. Original Note: Received case management consult over the weekend. Patient came to the ER due to generalized weakness. Work up essentially negative. Physical therapy eval completed. Short term rehab is recommended. Met with patient in regards to discharge planning. Patient lives alone, ambulates independently at baseline and is active with [facility]. PCP verified. Copy of HCP requested from [facility]. Patient reports never going to short term rehab and is agreeable due to lower leg weakness. [facility] will [facility]. Bed offers will be discussed with patient. Continue to monitor for d/c needs.
[2025-04-13 14:00] VITALS: BP 115/61; PULSE 73; RESP 16; TEMP 36.9; O2SAT 97
[2025-04-13 17:24] LABS: Lyme Abs Screen <0.90 index
[2025-04-13 19:56] VITALS: BP 140/70; PULSE 67; RESP 18; TEMP 36.7; O2SAT 97
[2025-04-13 20:25] VITALS: BP 140/70
--- NOTE | 2025-04-13 20:35 | MHC.CM.ED ---
3 acute rehab facilities declined patient. 16 local SNF offered beds. Requested private pay rates. Pt is willing to private pay, as he feels he needs rehab.
[2025-04-13 22:02] LABS: A. Phagocytphilium DNA,RT-PCR NOT DETECTED (NOT DETECTED); Babesia Microti DNA, RT-PCR NOT DETECTED (NOT DETECTED); Borrelia Miyamotoi,DNA RT-PCR NOT DETECTED (NOT DETECTED); E.Chaffeensis DNA RT-PCR NOT DETECTED (NOT DETECTED); Lyme(Borrelia ssp)DNA RT-PCR NOT DETECTED (NOT DETECTED)
[2025-04-14 05:32] VITALS: BP 137/62; PULSE 77; RESP 16; TEMP 36.2; O2SAT 97
[2025-04-14] MEDS: oxyCODONE HCl Immed Release 5 MG TABLET PO ×2 (05:36→12:22)
[2025-04-14 07:45] VITALS: BP 106/49; PULSE 75; RESP 16; TEMP 36.8; O2SAT 96
[2025-04-14] MEDS: Metoprolol Succinate ER 100 MG TAB.ER.24H 200 MG PO (10:25)
--- NOTE | 2025-04-14 11:10 | MHC.CM.ED ---
Addendum entered by Noelle Montes 04/14/25 15:04: Financials have been arranged by facility. Patient can leave at 4pm. [facility] booked. Med [facility] with chart. Patient, Kellie RN and Jessica MARSH aware. Original Note: Patient remains in ER overflow. Multiple bed offers with private pay rate provided to patient. Patient accepts bed at [facility]. Facility made aware and will reach out to patient to arrange financials. Continue to monitor for d/c needs.
[2025-04-14 12:17] VITALS: BP 104/68; PULSE 94; RESP 18; TEMP 36.8; O2SAT 97
[2025-04-14 15:14] LABS: MANUAL DIFF FLAG NO
[2025-04-14 15:17] LABS: Hematocrit 29.9 % (42.0-52.0); Hemoglobin 10.0 g/dl (14.0-18.0); Imm Gran Abs Auto 0.15 X10*3/uL (0.00-0.03); Imm Gran Pct Auto 1.0 % (0.0-0.4); Lymphocytes Absolute Auto 0.6 X10*3/uL (1.2-4.9); Mean Corpuscular HGB Conc 33.4 g/dl (31.0-36.0); Mean Corpuscular Hemoglobin 31.1 pg (27.0-33.0); Mean Corpuscular Volume 92.9 fL (80.0-98.0); NRBC Abs Auto 0.000 X10*3/uL (0.0-0.012); NRBC Pct Auto 0.0 /100WBC (0.0-0.2); Platelet Count 355 X10*3/uL (160-400); Red Blood Count 3.22 X10*6/uL (4.60-5.80); White Blood Count 15.7 X10*3/uL (4.8-10.8)
[2025-04-14 15:31] LABS: Alanine Aminotransferase 119 U/L (0-40); Albumin Level 2.6 g/dL (3.5-5.0); Alkaline Phosphatase 67 U/L (39-117); Anion Gap 10 (12-20); Aspartate Amino Transferase 85 U/L (5-37); Blood Urea Nitrogen 14 mg/dL (9-16); Calcium 8.0 mg/dL (8.4-10.2); Carbon Dioxide 33 mmol/L (22-29); Chloride 95 mmol/L (96-108); Creatinine Clr Calc Pharmacy 127.8; Estimated Glomerular Filt Rate > 60; Magnesium 2.0 mg/dL (1.6-2.6); Potassium 3.4 mmol/L (3.3-5.1); Sodium 135 mmol/L (135-145); Total Protein 5.5 g/dL (6.5-8.0)
[2025-04-14 15:40] VITALS: BP 113/56; PULSE 73; RESP 16; TEMP 36.6; O2SAT 96
== END 2025-04-14 16:36 ==
PROVIDERS: Nurse Practitioner Family; Physician Assistant; Emergency Provider Emergency Medicine Emergency Medical Services; PCP Internal Medicine
DX: R53.1 Weakness (principal); M35.3 Polymyalgia rheumatica; R53.83 Other fatigue; R10.32 Left lower quadrant pain; R19.7 Diarrhea, unspecified; Z03.818 Encounter for observation for suspected exposure to other biological agents ruled out; I10 Essential (primary) hypertension; E78.5 Hyperlipidemia, unspecified; I48.91 Unspecified atrial fibrillation; I49.5 Sick sinus syndrome; Z79.02 Long term (current) use of antithrombotics/antiplatelets; Z79.899 Other long term (current) drug therapy
CPT/HCPCS: 36415; 70450; 71045; 74177; 80048; 80053; 80076; 81003; 83605; 83690; 83735; 83880; 84443; 84484; 85025; 85652; 86140; 86617; 86618; 86704; 86706; 86709; 86803; 87040; 87340; 87468; 87469; 87478; 87484; 87637; 87798; 93005; 96361; 96365; 97161; 99285; J0696; J1836; Q9967

== ENCOUNTER → 2025-04-11 16:37 | Outpatient (BNV) | payer OTHER, SELFPAY | PROVIDERS: Emergency Provider Emergency Medicine Emergency Medical Services; PCP Internal Medicine; Visit Provider Radiology Diagnostic Radiology | DX: R10.814 Left lower quadrant abdominal tenderness (principal); R19.7 Diarrhea, unspecified; R53.1 Weakness | CPT/HCPCS: 70450; 71045; 74177 ==

== ENCOUNTER → 2025-04-11 16:38 | Outpatient (BNV) | payer OTHER, SELFPAY | PROVIDERS: Emergency Provider Emergency Medicine Emergency Medical Services; PCP Internal Medicine; Visit Provider Internal Medicine Cardiovascular Disease | DX: R53.1 Weakness (principal) | CPT/HCPCS: 93010 ==